=== PATIENT | male | born 1995 | race Hispanic/Latino ===

== ENCOUNTER 2016-06-15 13:13 | Emergency (ER) | payer SELFPAY ==
[2016-06-15 13:28] VITALS: BP 157/99; PULSE 106; RESP 18; TEMP 99.2; O2SAT 99
--- NOTE | 2016-06-15 14:34 | ED PDOC ---
HPI: General Adult Time Seen by Provider: 06/15/16 14:10 Chief Complaint (Nursing): Flu-like Symptoms Chief Complaint (Provider): Flu-like Symptoms History Per: Patient History/Exam Limitations: no limitations Onset/Duration Of Symptoms: Days (x4 days) Current Symptoms Are (Timing): Still Present Additional Complaint(s): 20 y/o male who presents to the emergency department with a complaint of body aches, chills, fever, vomiting, and dry cough x4 days. Associated with a sore throat and chest pain that began this morning. Reports taking Tylenol, Nyquil, Robitussin and tea for the relief of symptoms. Denies sinus pressure, diarrhea, difficulty swallowing, any travels outside the country, or sick contact. Past Medical History Reviewed: Historical Data, Nursing Documentation, Vital Signs Vital Signs: Last Vital Signs Temp 99.2 F 06/15/16 13:25 Pulse 106 H 06/15/16 13:25 Resp 18 06/15/16 13:25 BP 157/99 H 06/15/16 13:25 Pulse Ox 99 06/15/16 14:52 - Medical History PMH: No Chronic Diseases - Surgical History Surgical History: No Surg Hx - Family History Family History: States: Unknown Family Hx - Social History Ex-Smoker (has not smoked in the last 12 months): Yes Alcohol: None Drugs: Denies - Home Medications Home Medications: Ambulatory Orders Medication Instructions Recorded Oseltamivir Phosphate [Tamiflu] 75 mg PO BID #10 capsule 06/15/16 - Allergies Allergies/Adverse Reactions: Allergies Allergy/AdvReac Type Severity Reaction Status Date / Time No Known Allergies Allergy Verified 06/15/16 13:25 Review of Systems ROS Statement: Except As Marked, All Systems Reviewed And Found Negative Constitutional: Positive for: Fever, Chills, Other (Body aches) ENT: Positive for: Throat Pain (Sore). Negative for: Other (Sinus pressure or difficulty swallowing) Cardiovascular: Positive for: Chest Pain (in association to cough) Respiratory: Positive for: Cough (Dry) Gastrointestinal: Positive for: Vomiting. Negative for: Diarrhea Physical Exam - Reviewed Nursing Documentation Reviewed: Yes Vital Signs Reviewed: Yes - Physical Exam Appears: Positive for: Non-toxic, No Acute Distress Head Exam: Positive for: ATRAUMATIC, NORMOCEPHALIC Skin: Positive for: Normal Color, Warm, Dry Eye Exam: Positive for: Normal appearance, EOMI, PERRL. Negative for: Periorbital tenderness, Conjunctival injection ENT: Positive for: Normal ENT Inspection. Negative for: Pharyngeal Erythema Neck: Positive for: Normal, Supple Cardiovascular/Chest: Positive for: Regular Rate, Rhythm. Negative for: Murmur Respiratory: Positive for: Decreased Breath Sounds (to the right lower lungs) Neurologic/Psych: Positive for: Alert, Oriented - ECG O2 Sat by Pulse Oximetry: 99 (RA) Pulse Ox Interpretation: Normal - Radiology X-Ray: Interpreted by Me X-Ray Interpretation: No Acute Disease Medical Decision Making Medical Decision Making: Time: 14:10 Initial impression: Flu-like symptoms Initial plan: --Influenza A B Stat --Chest Two Views (PA/LAT) (RAD) --Revaluation Time: 14:50 --Positive for Influenza pt wtih negative chest xray Rx tamiflu and advised to have pmd f.u supportive care stable VS Scribe Attestation: Documented by Halina Treviño, acting as a scribe for Sushma Persaud PA-C. Provider Scribe Attestation: All medical record entries made by the Scribe were at my direction and personally dictated by me. I have reviewed the chart and agree that the record accurately reflects my personal performance of the history, physical exam, medical decision making, and the department course for this patient. I have also personally directed, reviewed, and agree with the discharge instructions and disposition. Disposition - Clinical Impression Clinical Impression: Influenza - Patient ED Disposition Is Patient to be Admitted: No Counseled Patient/Family Regarding: Studies Performed, Diagnosis, Need For Followup, Rx Given - Disposition Disposition: Routine/Home Disposition Time: 15:23 Condition: STABLE Prescriptions: Oseltamivir Phosphate [Tamiflu] 75 mg PO BID #10 capsule Instructions: Influenza (ED) Forms: [facility] ED School/Work Excuse
--- NOTE | 2016-06-15 17:34 | RAD ---
HISTORY: cough COMPARISON: No prior. TECHNIQUE: Chest PA and lateral FINDINGS: LUNGS: The lungs are well inflated and clear. PLEURA: No significant pleural effusion identified. No pneumothorax apparent. CARDIOVASCULAR: Normal. OSSEOUS STRUCTURES: No significant abnormalities. VISUALIZED UPPER ABDOMEN: Normal. OTHER FINDINGS: None. IMPRESSION: No active pulmonary disease.
== END 2016-06-15 17:02 | disposition home or self-care (01) ==
LOC: H.ER 13:13
DX: J11.1 Influenza due to unidentified influenza virus with other respiratory manifestations (principal); R05 Cough; R11.10 Vomiting, unspecified; J02.9 Acute pharyngitis, unspecified